=== PATIENT | male | born 1970 | race Caucasian/White ===

== ENCOUNTER 2022-03-09 10:55 | Emergency (ER) | payer OTHER, SELFPAY ==
[2022-03-09 11:10] VITALS: BP 126/91; PULSE 93; RESP 18; TEMP 36.7; O2SAT 98
--- NOTE | 2022-03-09 11:15 | ED.SKABFB ---
HPI - Skin/Abscess/Foreign Bdy General Chief complaint: Skin/Abscess/Foreign Body Stated complaint: rash Time Seen by Provider: 03/09/22 11:16 Source: patient and RN notes reviewed Mode of arrival: ambulatory Limitations: no limitations History of Present Illness HPI narrative: 51-year-old male presents with concern for rash. Reports he is was treated by international representative and diagnosed with a staph infection. He was put on 1 month of doxycycline, to topical treatments. Reports symptoms improved however when he finished the antibiotic symptoms seem to return. He reports he called the international representative, they cannot see him until May. They represcribed the topical but did not represcribe the antibiotic. He reports scabs all over his arms and legs that are itchy. Reports difficulty sleeping at night due to itching. He reports he has been through multiple types of treatments to try to figure this out including spraying his whole home for possible bugs or mites. He reports the international representative did a culture of the skin that showed staph. MD complaint: rash Related Data Home Medications Medication Instructions Recorded Confirmed fluocinonide 1 applic TOPICAL DIRECTED 03/09/22 03/09/22 mupirocin 1 applic TOPICAL DIRECTED 03/09/22 03/09/22 Allergies Allergy/AdvReac Type Severity Reaction Status Date / Time No Known Allergies Allergy Verified 03/09/22 11:21 Review of Systems Review of Systems: CONSTITUTIONAL: Denies malaise, chills, sweats, or fever. EYES: Denies redness, or discharge. ENT: Denies rhinorrhea, congestion, swollen lips, swollen tongue CARDIOVASCULAR: Denies chest pain, palpitations, or edema. RESPIRATORY: Denies cough or dyspnea. GASTROINTESTINAL: Denies abdominal pain, nausea, vomiting SKIN: Reports itchy scabs on his arms and legs MUSCULOSKELETAL: Denies joint pain or myalgia. NEUROLOGIC: Denies headache. All systems reviewed & are unremarkable except as noted in HPI and below PMFSH Social History Social History Smoking status: Never smoker Comments At time of signature, agree with nursing past medical, surgical, social and family history. There is no relevant family history pertinent to the presenting complaint Exam Narrative: GENERAL: Well-appearing, well-nourished, and in no acute distress. HEAD: Normocephalic, atraumatic. EYES: PERRLA, conjunctivae clear, and EOMI. ENT: Mucous membranes moist. Oropharynx without edema, erythema or lesions. NECK: Supple. No lymphadenopathy CHEST: Clear to auscultation. No respiratory distress. HEART: Regular rate and rhythm. SKIN: Warm, dry. Scabs noted to the arms and legs in different stages of healing, from sizes, no blisters noted, no papules or macules noted NEURO: Alert and oriented x3. PSYCH: Normal mood and affect Course Course Emergency Course: Discussed with patient that follow-up with his international representative is the best plan, given that she has already initiated treatment for this. Advised patient that we can try a course of Bactrim to see if it shows improvement however he ultimately needs a follow-up with his international representative Patient is aware of diagnosis, understands and agrees to treatment plan. Anticipatory guidance given. Patient agrees to follow-up as directed and is aware of reasons to seek care at the emergency department. Portions of this record may have been created with voice recognition software Level of Care: Express Care Visit Vital Signs Vital signs: Vital Signs Temperature 98.0 F 03/09/22 11:10 Pulse Rate 93 03/09/22 11:10 Respiratory Rate 18 03/09/22 11:10 Blood Pressure 126/91 H 03/09/22 11:10 Pulse Oximetry 98 03/09/22 11:10 Temperature 98.0 F 03/09/22 11:10 Pulse Rate 93 03/09/22 11:10 Respiratory Rate 18 03/09/22 11:10 Blood Pressure 126/91 H 03/09/22 11:10 Pulse Oximetry 98 03/09/22 11:10 Reviewed. MDM - Skin/Abscess/Foreign Bdy MDM Narrative Medical decision making narrative: Does not ap
== END 2022-03-09 11:40 | disposition home or self-care (01) ==
PROVIDERS: Emergency Provider Nurse Practitioner
DX: R21 Rash and other nonspecific skin eruption (principal); K21.9 Gastro-esophageal reflux disease without esophagitis; Z86.14 Personal history of Methicillin resistant Staphylococcus aureus infection
CPT/HCPCS: 99203; G0463

== ENCOUNTER 2022-04-04 10:31 | Emergency (ER) | payer OTHER, SELFPAY ==
[2022-04-04 10:43] VITALS: BP 114/66; PULSE 92; RESP 18; TEMP 36.8; O2SAT 98
--- NOTE | 2022-04-04 10:49 | ED.GENADULT ---
HPI - General Adult General Chief complaint: Skin/Abscess/Foreign Body Stated complaint: rash Source: patient Mode of arrival: ambulatory Limitations: no limitations History of Present Illness HPI narrative: Patient is a 51-year-old male who presents to the [facility] via POV for an evaluation of a rash that has been present for approximately 1 year. He reports rash is generalized. Patient is being followed by dermatology. He has been seeing Shi Torres MD at [facility]. He is requesting a refill of Lidex cream,, mupirocin, and an antibiotic. Rash is pruritic and erythematous with open areas. He admits to scratching areas. Creams were partially effective although past antibiotic have been very effective per his report. He was last seen at this facility in January and was prescribed atarax and Bactrim DS. Atarax alleviated itch. Unable to take entire course of Bactrim due to intolerable side effects of nausea and vomiting. Related Data Home Medications Medication Instructions Recorded Confirmed pantoprazole [Protonix] 40 mg PO DAILY 04/04/22 04/04/22 Allergies Allergy/AdvReac Type Severity Reaction Status Date / Time sulfamethoxazole AdvReac Nausea and Verified 04/04/22 10:51 [From Bactrim] Vomiting trimethoprim [From Bactrim] AdvReac Nausea and Verified 04/04/22 10:51 Vomiting Review of Systems Review of Systems: Denies injury. Pertinent negatives fever, chills, sweats, malaise, poor p.o. intake, change in appetite, headache, LOC, dizziness, streaking, drainage, numbness, tingling, loss of sensation, foreign body sensation, deformity, sob, chest pain, and heart palpitations/murmurs. PMFSH Past Medical History Medical History (Updated 04/04/22 @ 11:28 by YESENIA Loera, ) GERD (gastroesophageal reflux disease) Social History Social History Smoking status: Never smoker Comments I have reviewed and agree with the patient's past medical, surgical, social, and family hx as documented by the RN. There is no relevant family history pertinent to the presenting complaint. Exam Narrative: GENERAL: Well-appearing, well-nourished, and in no acute distress. HEAD: Normocephalic, atraumatic. No facial swelling appreciated. EYES: PERRLA and EOMI. No evidence of erythema, swelling, or drainage. ENT: Nares clear, no rhinorrhea or epistaxis.Mucous membranes moist and pink. Uvula is midline without erythema and swelling. No evidence of obstruction, petechial rash, cobblestoning, lesions, ulcers, erythema, swelling, exudates, peritonsillar abscess, tenting, or drooling. Breath odor and voice normal. NECK: Supple. No Lymphadenopathy or nuchal rigidity appreciated. CHEST: Bilateral lung camacho are clear to auscultation. No respiratory distress. No evidence of cough or pleuritic cp upon examination. HEART: Regular rate and rhythm. No murmur, gallop, or rub heard. EXTREMITIES: Normal range of motion. No edema. SKIN: Warm, dry. Moderate rash that is diffuse. Rash is erythematous, crusted, and open. No evidence of cellulitis, abscess, streaking, or induration. NEURO: No focal deficits. Alert and oriented x3. Course Course Level of Care: Express Care Visit Vital Signs Vital signs: Vital Signs Temperature 98.2 F 04/04/22 10:43 Pulse Rate 92 04/04/22 10:43 Respiratory Rate 18 04/04/22 10:43 Blood Pressure 114/66 04/04/22 10:43 Pulse Oximetry 98 04/04/22 10:43 Temperature 98.2 F 04/04/22 10:43 Pulse Rate 92 04/04/22 10:43 Respiratory Rate 18 04/04/22 10:43 Blood Pressure 114/66 04/04/22 10:43 Pulse Oximetry 98 04/04/22 10:43 Reviewed Medical Decision Making Differential Diagnosis Differential Diagnosis: Contact/allergic dermatitis, atopic dermatitis, psoriasis, cellulitis, tinea infection, parasite infection, shingles Medical Records Medical records reviewed: Yes I reviewed the ext
== END 2022-04-04 11:35 | disposition home or self-care (01) ==
PROVIDERS: Emergency Provider Nurse Practitioner Family; PCP Physician Assistant Medical
DX: R21 Rash and other nonspecific skin eruption (principal); K21.9 Gastro-esophageal reflux disease without esophagitis
CPT/HCPCS: 99213; G0463